=== PATIENT | male | born 1950 | race Caucasian/White ===

== ENCOUNTER 2016-09-08 06:54 | Emergency (ER) | payer OTHER ==
[~2016-09-08] VITALS: Ht 182.9 cm; Wt 118.2 kg
[2016-09-08 06:58] VITALS: BP 159/94; PULSE 60; TEMP 36.3; O2SAT 97; Ht 182.9 cm; Wt 118.2 kg
[2016-09-08] MEDS ORDERED: IBUPROFEN 600 MG TAB PO STA (07:34)
[2016-09-08] MEDS ORDERED: CYCLOBENZAPRINE HCL 5 MG TAB PO STA (07:34)
[2016-09-08] MEDS ORDERED: CYCLOBENZAPRINE HCL 10 MG TAB ONE (07:38)
--- NOTE | 2016-09-08 08:38 | DIAGNOSTIC IMAGING REPORT ---
C-SPINE ROUTINE 4 OR 5 VIEWS CLINICAL HISTORY: Neck pain COMPARISON STUDY: No previous studies for comparison. FINDINGS: Visualization of the cervical spine is adequate. No acute fracture or suspicious lesion is present. There is straightening of the normal cervical lordosis. Moderate multilevel degenerative disc disease and facet arthrosis is noted. There is multilevel bony neural foraminal narrowing. IMPRESSION: 1. No cervical spine fracture or subluxation. 2. Moderate multilevel degenerative disc disease and facet arthrosis of the cervical spine. Electronically signed by: Esau Milan M.D. 09/08/2016 8:36 AM Dictated Date/Time: 09/08/2016 8:35 AM
[2016-09-08] MEDS ORDERED: CYCL10TA6 PO (08:50)
--- NOTE | 2016-09-08 16:37 | EMERGENCY ROOM VISIT NOTE ---
History Report prepared by Brea: Jaymie Ordaz Under the Supervision of: Dr. Gurwinder Tariq M.D. First contact with patient: 07:06 Chief Complaint: NECK PAIN Stated Complaint: EVERE NECK PAIN,UNABLE TO MOVE IT History of Present Illness The patient is a 65 year old male who presents to the Emergency Room with complaints of persistent pain to his posterior neck over the past 3 days. Currently, he rates his discomfort as a 4/10, which he states was relieved from a 10/10 after taking Aleve and taking a hot shower. When the patient's pain first began 3 days prior, he thought that he had slept on his neck in an awkward position as he woke up with a stiff neck. Since that time, he has had difficulty moving his neck from side to side secondary to increased pain, but he denies radiation of pain to his jaw, shoulder or back, and he has not had any chest pain, shortness of breath, nausea or diaphoresis. Patient denies suffering recent falls or trauma to his head or neck, other than sleeping on it wrong. He also denies recent fevers, chills, headache, abdominal pain, vomiting , diarrhea or urinary symptoms. states that she was concerned about the patient because he has taken multiple dosages of Aleve to control his discomfort , which is abnormal for him as he does not normally complain of pain or take any medications. states that the patient has also been having trouble hearing in his left ear and thinks that it may be impacted with cerumen as he uses Q-tips regularly. Source of History: patient, spouse/significant other Onset: over the past 4 days Position: neck Symptom Intensity: 4/10 Quality: other (stiff) Timing: other (persistent) Modifying Factors (Worsening): movement (side to side) Modifying Factors (Relieving): other (Aleve, heat) Associated Symptoms: No SOB, No chest pain, No chills, No fevers, No nausea , No vomiting Note: Patient is hard of hearing in his left ear. Review of Systems See HPI for pertinent positives & negatives. A total of 10 systems reviewed and were otherwise negative. Past Medical & Surgical Medical Problems: (1) Hay fever (2) No significant active problems Family History Cancer Social History Smoking Status: Never Smoker Marital Status: Housing Status: lives with significant other Occupation Status: retired Current/Historical Medications Scheduled Cyclobenzaprine Hcl (Flexeril), 5 MG PO TID Allergies Coded Allergies: No Known Allergies (Unverified , 09/08/16) Physical Exam Vital Signs Date Time Temp Pulse Resp B/P Pulse Ox O2 Delivery O2 Flow Rate FiO2 09/08/16 06:58 36.3 60 18 159/94 97 Room Air Physical Exam GENERAL: Patient is a healthy-appearing well-nourished 65 year old male HEAD: Normocephalic atraumatic EYES: Ocular movements intact pupils equal and react to light EARS: Bilateral cerumen impaction OROPHARYNX mucous membranes are moist no exudates present no erythema or edema present NECK: Tenderness to palpation of the cervical perispinal muscles on the left. No evidence of meningitis or encephalitis. CHEST: Good equal expansion LUNGS: Clear and equal to auscultation CARDIAC: Normal S1 and S2 ABDOMEN: Soft nontender no guarding BACK: No CVA tenderness EXTREMITIES: No pain upon palpation normal muscle strength in all groups no clubbing cyanosis or edema NEURO: Patient is following commands is answering questions appropriately. Alert and oriented x3 Cranial Nerves 2-12 grossly intact Medical Decision & Procedures ER Provider Diagnostic Interpretation: X-ray results as stated below per interpretation by me and the radiologist: C-SPINE ROUTINE 4 OR 5 VIEWS CLINICAL HISTORY: Neck pain COMPARISON STUDY: No previous studies for comparison. FINDINGS: Visualization of the cervical spine is adequate. No acute fracture or suspicious lesion is present. There is straightening of the normal cervical lordosis. Moderate multilevel degenerative disc disease and facet arthrosis is noted. There is multilevel bony neural foraminal narrowing. IMPRESSION: 1. No cervical spine fracture or subluxation. 2. Moderate multilevel degenerative disc disease and facet arthrosis of the cervical spine. Electronically signed by: Esau Milan M.D. 09/08/2016 8:36 AM Dictated Date/Time: 09/08/2016 8:35 AM Medications Administered Medications (Trade) Dose Ordered Sig/Bronson Route Start Time Stop Time Status Last Admin Dose Admin Ibuprofen (Motrin Tab) 600 mg NOW STAT PO 09/08/16 07:34 09/08/16 07:36 DC 09/08/16 07:41 600 MG Cyclobenzaprine HCl (Flexeril Tab) 10 mg STK-MED ONCE .ROUTE 09/08/16 07:38 09/08/16 07:40 DC 09/08/16 07:42 5 MG ECG Indication: other (neck pain) Rate (beats per minute): 63 Rhythm: normal sinus Findings: no acute ischemic change, no ectopy ED Course 0708: Past medical records reviewed. The patient was evaluated in room A4. A complete history and physical examination was performed. 0720: The patient's ears were irrigated and disimpacted, bilaterally. A large amount of cerumen was removed. 0734: Flexeril tab 5 mg PO and Motrin 600 mg PO were ordered. 0738: Flexeril tab 10 mg Route was ordered. 0845: Upon reevaluation, the patient was doing well and was resting more comfortably after receiving the medications. I updated him and his on the results of his radiology reports. I also recommended that he follow up with orthopedics if his pain continued or worsened. Patient verbalized his understanding with the treatment plan, but stated that he would probably not follow up with orthopedics. He is now ready for disposition. Medical Decision Differential diagnosis: Etiologies such as fracture, dislocation, neurovascular compromise, compartment syndrome, soft tissue injury, as well as others were entertained. This is a 65-year-old male who presents emergency department complaining of left -sided neck pain. The patient was given Flexeril in the emergency department along with ibuprofen. Repeat examination revealed much improvement the patient' s symptoms. Based on the patient's physical exam I do believe the patient suffered from a neck spasm. In addition the patient was much improved after the muscle relaxant. The patient's EKG does not show any evidence of acute ischemia. I believe based on these findings at the patient can follow-up with orthopedics. I reviewed the patient's x-ray results with the patient and his . The patient was not accepting of the x-ray results and also stated he would not follow-up with orthopedics. Impression Primary Impression: Neck pain on left side Scribe Attestation The scribe's documentation has been prepared under my direction and personally reviewed by me in its entirety. I confirm that the note above accurately reflects all work, treatment, procedures, and medical decision making performed by me. Departure Information Dispostion Home / Self-Care Prescriptions Cyclobenzaprine Hcl (FLEXERIL) 10 Mg Tab 5 MG PO TID, #21 TAB Prov: Gurwinder Tariq MD 09/08/16 Referrals No Doctor, Assigned (PCP) Forms HOME CARE DOCUMENTATION FORM, IMPORTANT VISIT INFORMATION, WORK / SCHOOL INSTRUCTIONS Patient Instructions My [facility] Additional Instructions Follow up with Dr Macias's office if continuing to have pain Take 600 mg Ibuprofen every 6 hours Take Flexeril for breakthrough pain You have been examined and treated today on an emergency basis only. This is not a substitute for, or an effort to provide, complete comprehensive medical care. It is impossible to recognize and treat all injuries or illnesses in a single emergency department visit. It is therefore important that you follow up closely with your PCP. Call as soon as possible for an appointment. Thank you for your time and consideration. I look forward to speaking with you again soon. Please don't hesitate to call us if you have any questions.
== END 2016-09-08 09:02 | disposition home or self-care (01) ==
LOC: C.EDB 06:57 → C.EDA 09:02
DX: M54.2 Cervicalgia (principal); Z80.9 Family history of malignant neoplasm, unspecified